=== PATIENT | female | born 1970 | race Caucasian/White ===

== ENCOUNTER 2022-06-30 09:30 | Observation (INO) ==
[2022-06-30] MEDS ORDERED: Iodixanol (CONTRAST) 320 MG/ML 100 ML SDV IV ONE (09:45)
[2022-06-30 10:10] LABS: ABS Basophils 0.1 10^3/ul (0-0.2); ABS Eosinophils 0.1 10^3/ul (0-0.6); ABS Lymphocytes 1.4 10^3/ul (1.0-4.8); ABS Monocytes 0.5 10^3/ul (0-0.8); ABS Neutrophils 6.1 10^3/ul (1.5-7.7); Eosinophil % 1.3 %; Hematocrit 37 % (35-47); Hemoglobin 11.8 g/dL (12.0-16.0); Mean Corpuscular HGB Conc 32 g/dL (31-36); Mean Corpuscular Hemoglobin 28 pg (27-31); Mean Corpuscular Volume 88 fL (80-97); Platelet Count 301 10^3/uL (150-450); Red Blood Count 4.18 10^6 /uL (3.70-4.87); Red Cell Distribution Width 14 % (10-15); White Blood Count 8.1 10^3/uL (3.5-10.8)
[2022-06-30 10:20] LABS: Activated Partial Thrombo Time 28.4 seconds (26.0-38.0); INR 0.97 (0.88-1.18)
[2022-06-30 11:37] LABS: Albumin 3.4 g/dL (3.2-5.2); Albumin/Globulin Ratio 1.3 (1-3); Calcium 8.6 mg/dL (8.6-10.3); Creatinine, Serum 0.89 mg/dL (0.51-0.95); Globulin 2.6 g/dL (2-4); HDL Cholesterol 50.7 mg/dL; Potassium 4.3 mmol/L (3.5-5.0); Total Bilirubin 0.2 mg/dL (0.2-1.0); eGFR CKD-EPI 77.5 (>60)
[2022-06-30] MEDS ORDERED: Iohexol 350 (CONTRAST) 500 ML MDV IV ONE (12:07)
[2022-06-30 13:18] LABS: Urine Appearance Cloudy; Urine Bilirubin Negative (Negative); Urine Blood Negative (Negative); Urine Color Yellow; Urine Glucose Negative (Negative); Urine Ketones Negative (Negative); Urine Nitrite Positive (Negative); Urine Protein Negative (Negative); Urine Specific Gravity 1.035 (1.002-1.030); Urine Urobilinogen Negative (Negative)
[2022-06-30 13:29] LABS: Urine Bacteria 1+ (Absent); Urine Red Blood Cell Absent (Absent); Urine Squamous Epithelial Cell Present (Absent); Urine White Blood Cell Trace(0-5/hpf) (Absent)
[2022-06-30] MEDS ORDERED: Nicotine GUM 4MG FRUIT FLAVOR PO PRN (15:57)
[2022-06-30] MEDS: Nicotine PATCH 21 MG/24 HR PATCH TRANSDERM SCH (16:05)
[2022-06-30] MEDS ORDERED: PEG 3000 GI LAVAGE 1 GALLON PO ONE (16:34)
[2022-06-30] MEDS ORDERED: levETIRAcetam 1000MG IVPREMIX 1,000 MG/100 ML BAG IVPB ONE (16:52)
[2022-06-30] MEDS ORDERED: Enoxaparin 40 MG/0.4 ML SYR SUBCUT SCH (17:00)
[2022-06-30] MEDS ORDERED: NS 0.9% w/ 20 Meq KCL 1000 ml 1,000 ML IV SCH (17:00)
[2022-07-01 06:31] LABS: ABS Basophils 0.1 10^3/ul (0-0.2); ABS Eosinophils 0.1 10^3/ul (0-0.6); ABS Lymphocytes 2.1 10^3/ul (1.0-4.8); ABS Monocytes 0.5 10^3/ul (0-0.8); ABS Neutrophils 3.3 10^3/ul (1.5-7.7); Eosinophil % 1.7 %; Hematocrit 37 % (35-47); Hemoglobin 11.8 g/dL (12.0-16.0); Lymphocyte % 34.1 %; Mean Corpuscular HGB Conc 32 g/dL (31-36); Mean Corpuscular Hemoglobin 28 pg (27-31); Mean Corpuscular Volume 88 fL (80-97); Mean Platelet Volume 7.4 fL (7.4-10.4); Platelet Count 317 10^3/uL (150-450); Red Blood Count 4.19 10^6 /uL (3.70-4.87); Red Cell Distribution Width 14 % (10-15); White Blood Count 6.1 10^3/uL (3.5-10.8)
[2022-07-01 06:56] LABS: Calcium 9.2 mg/dL (8.6-10.3); Creatinine, Serum 0.89 mg/dL (0.51-0.95); Magnesium 2.1 mg/dL (1.9-2.7); Potassium 4.5 mmol/L (3.5-5.0); eGFR CKD-EPI 77.5 (>60)
[2022-07-01] MEDS: Nicotine PATCH 21 MG/24 HR PATCH TRANSDERM SCH (09:40)
[2022-07-01] MEDS ORDERED: fentaNYL 100 mcg/2 ml 50 MCG/ML VIAL ONE (13:09)
[2022-07-01] MEDS ORDERED: Midazolam 10 mg/10 ml VIAL 1 mg/ml 10 ml VIAL (10 mg) ONE (13:09)
[2022-07-01 14:54] VITALS: BP 127/84
== END 2022-07-01 16:16 | disposition home or self-care (01) ==
LOC: EDHOLD 09:30 → ED 09:30 → MEDTELE 19:15
PROVIDERS: ADMIT Student in an Organized Health Care Education/Training Program; ATTEND Internal Medicine

== ENCOUNTER 2022-08-07 16:06 | Inpatient (IN) ==
[2022-08-07] MEDS ORDERED: Ondansetron 4 mg VIAL 2 MG/ML 2 ml VIAL IV ONE (16:42)
[2022-08-07 17:11] LABS: ABS Lymphocytes 0.3 10^3/ul (1.0-4.8); ABS Monocytes 0.1 10^3/ul (0-0.8); ABS Neutrophils 2.9 10^3/ul (1.5-7.7); Eosinophil % 0.5 %; Hematocrit 29 % (35-47); Hemoglobin 8.8 g/dL (12.0-16.0); Lymphocyte % 8.3 %; Mean Corpuscular HGB Conc 31 g/dL (31-36); Mean Corpuscular Hemoglobin 27 pg (27-31); Mean Corpuscular Volume 87 fL (80-97); Nucleated Red Blood Cells % 0.2; Platelet Count 287 10^3/uL (150-450); Red Blood Count 3.28 10^6 /uL (3.70-4.87); Red Cell Distribution Width 17 % (10-15); White Blood Count 3.3 10^3/uL (3.5-10.8)
[2022-08-07 17:35] LABS: INR 0.93 (0.88-1.18)
[2022-08-07 17:58] LABS: Albumin 3.2 g/dL (3.2-5.2); Albumin/Globulin Ratio 1.3 (1-3); C Reactive Protein 66.13 mg/L (<8.01); Calcium 8.6 mg/dL (8.6-10.3); Creatinine, Serum 0.79 mg/dL (0.51-0.95); Globulin 2.4 g/dL (2-4); Potassium 3.7 mmol/L (3.5-5.0); Total Bilirubin 0.2 mg/dL (0.2-1.0); Total Protein 5.6 g/dL (6.4-8.9); eGFR CKD-EPI 89.4 (>60)
[2022-08-07] MEDS ORDERED: Piperacillin/Tazobac ADVAN 3.375 GM in NS 0.9% 100 ml BAG 100 ML IV ONE (18:24)
[2022-08-07] MEDS ORDERED: NS 0.9% 1000 ml BAG 1,000 ML IV ONE (18:26)
[2022-08-07 18:45] LABS: High Sensitivity Troponin 1 Hr 76 pg/mL (<15)
[2022-08-07] MEDS: Enoxaparin 40 MG/0.4 ML SYR SUBCUT SCH (19:39)
[2022-08-07] MEDS ORDERED: Azithromycin 500 mg/250 ml NS 500 MG/250 ML BAG IVPB SCH (20:00)
[2022-08-08] MEDS ORDERED: Ondansetron 4 mg VIAL 2 MG/ML 2 ml VIAL ONE (00:11)
[2022-08-08] MEDS: Ondansetron 4 mg VIAL 2 MG/ML 2 ml VIAL IV PRN ×4 (00:15→22:11)
[2022-08-08] MEDS: Morphine 2 MG/ML SYRINGE IV PRN ×4 (00:15→22:10)
[2022-08-08] MEDS ORDERED: cefTRIAXone 1 gm/50 mL D5W 1 GM/50 ML BAG IV SCH (02:00)
[2022-08-08] MEDS ORDERED: Lactated Ringers 1000 ml BAG 500 ML IV ONE (04:08)
[2022-08-08 05:05] LABS: ABS Lymphocytes 0.7 10^3/ul (1.0-4.8); ABS Monocytes 0.4 10^3/ul (0-0.8); ABS Neutrophils 4.2 10^3/ul (1.5-7.7); Eosinophil % 0.4 %; Hematocrit 29 % (35-47); Lymphocyte % 12.9 %; Mean Corpuscular HGB Conc 31 g/dL (31-36); Mean Corpuscular Hemoglobin 27 pg (27-31); Mean Corpuscular Volume 86 fL (80-97); Mean Platelet Volume 7.1 fL (7.4-10.4); Nucleated Red Blood Cells % 0.1; Platelet Count 342 10^3/uL (150-450); Red Blood Count 3.37 10^6 /uL (3.70-4.87); Red Cell Distribution Width 17 % (10-15); White Blood Count 5.4 10^3/uL (3.5-10.8)
[2022-08-08 05:52] LABS: Calcium 8.1 mg/dL (8.6-10.3); Creatinine, Serum 1.13 mg/dL (0.51-0.95); Magnesium 1.6 mg/dL (1.9-2.7); Potassium 4.3 mmol/L (3.5-5.0); eGFR CKD-EPI 58.2 (>60)
[2022-08-08] MEDS ORDERED: Magnesium Sulf 4 GM/100 ML IV 4,000 MG/100 ML BAG IVPB ONE (06:32)
[2022-08-08] MEDS ORDERED: fentaNYL 100 mcg/2 ml 50 MCG/ML VIAL ONE (08:26)
[2022-08-08] MEDS: Lactated Ringers 1000 ml BAG 1,000 ML IV SCH ×2 (10:03→22:17)
[2022-08-08 10:06] LABS: Body Fluid Appearance Cloudy; Body Fluid Source Pleural Fluid
[2022-08-08 10:07] LABS: Body Fluid Color Amber
[2022-08-08 10:59] LABS: Body Fluid WBC 6590 /mcL
[2022-08-08] MEDS: guaiFENesin 100 mg/5 ml LIQ unit dose cup PO PRN (12:28)
[2022-08-08] MEDS ORDERED: Vancomycin 1,000 MG in NS 0.9% 250 ml 250 ML IVPB ONE (15:30)
[2022-08-08] MEDS ORDERED: Vancomycin per Pharmacy 1 EA NOTE FOLLOW UP SCH (16:00)
[2022-08-08] MEDS: Cefepime 2 GM in Dextrose 2 GM/50 ML BAG IV SCH (17:10)
[2022-08-08 19:16] LABS: Urine Appearance Cloudy; Urine Bilirubin Negative (Negative); Urine Blood 1+ (Negative); Urine Color Yellow; Urine Glucose Negative (Negative); Urine Ketones Negative (Negative); Urine Nitrite Negative (Negative); Urine Protein 2+(100 mg/dL) (Negative); Urine Urobilinogen Negative (Negative)
[2022-08-08 19:26] LABS: Urine Bacteria Absent (Absent); Urine Red Blood Cell Trace(0-2/hpf) (Absent); Urine Squamous Epithelial Cell Present (Absent); Urine White Blood Cell Trace(0-5/hpf) (Absent)
[2022-08-08] MEDS: Enoxaparin 40 MG/0.4 ML SYR SUBCUT SCH (20:13)
[2022-08-09] MEDS: Cefepime 2 GM in Dextrose 2 GM/50 ML BAG IV SCH ×2 (04:13→16:02)
[2022-08-09] MEDS: guaiFENesin 100 mg/5 ml LIQ unit dose cup PO PRN ×2 (04:40→10:56)
[2022-08-09] MEDS: Morphine 2 MG/ML SYRINGE IV PRN ×2 (04:40→11:28)
[2022-08-09] MEDS: Vancomycin 750 MG in NS 0.9% 250 ML IVPB SCH ×2 (05:31→18:17)
[2022-08-09 05:46] LABS: ABS Lymphocytes 0.5 10^3/ul (1.0-4.8); ABS Monocytes 0.6 10^3/ul (0-0.8); ABS Neutrophils 7.4 10^3/ul (1.5-7.7); Eosinophil % 0.1 %; Hematocrit 25 % (35-47); Hemoglobin 7.6 g/dL (12.0-16.0); Lymphocyte % 5.4 %; Mean Corpuscular HGB Conc 31 g/dL (31-36); Mean Corpuscular Hemoglobin 26 pg (27-31); Mean Corpuscular Volume 86 fL (80-97); Mean Platelet Volume 7.2 fL (7.4-10.4); Nucleated Red Blood Cells % 0.2; Platelet Count 322 10^3/uL (150-450); Red Blood Count 2.91 10^6 /uL (3.70-4.87); Red Cell Distribution Width 17 % (10-15); White Blood Count 8.5 10^3/uL (3.5-10.8)
[2022-08-09 06:16] LABS: Calcium 8.3 mg/dL (8.6-10.3); Creatinine, Serum 1.34 mg/dL (0.51-0.95); Magnesium 2.6 mg/dL (1.9-2.7); Potassium 4.1 mmol/L (3.5-5.0); eGFR CKD-EPI 47.4 (>60)
[2022-08-09] MEDS ORDERED: Acetaminophen IV 1 GM/100ML 1,000 MG/100 ML BAG IV ONE (13:08)
[2022-08-09] MEDS ORDERED: Ondansetron 4 mg VIAL 2 MG/ML 2 ml VIAL IV PRN (13:19)
[2022-08-09] MEDS ORDERED: Morphine 2 MG/ML SYRINGE IV PRN (13:19)
[2022-08-09] MEDS: Acetaminophen IV 1 GM/100ML 1,000 MG/100 ML BAG IV SCH ×2 (13:19→21:48)
[2022-08-09] MEDS ORDERED: Lactated Ringers 1000 ml BAG 1,000 ML IV SCH ×2 (15:00→18:00)
[2022-08-09] MEDS ORDERED: Iodixanol (CONTRAST) 320 MG/ML 100 ML SDV IV ONE (15:01)
[2022-08-09] MEDS ORDERED: Piperacillin/Tazobac ADVAN 3.375 GM in NS 0.9% 100 ml BAG 100 ML IV ONE (17:08)
[2022-08-09] MEDS: Chlorhexidine MOUTHWASH 0.12% 15 ML UDC SWISH SPIT SCH ×2 (17:39→21:45)
[2022-08-09] MEDS ORDERED: Zosyn per Pharmacy NOTE FOLLOW UP SCH (18:00)
[2022-08-09] MEDS: Enoxaparin 40 MG/0.4 ML SYR SUBCUT SCH (20:28)
[2022-08-09] MEDS: Pantoprazole VIAL 40 MG VIAL IV SCH (20:32)
[2022-08-09] MEDS: Lactated Ringers 1000 ml BAG 1,000 ML IV SCH (20:39)
[2022-08-09] MEDS ORDERED: Lorazepam PYXIS KEY PRN (21:19)
[2022-08-09] MEDS ORDERED: LORazepam 2 mg VIAL 1 ml IV PUSH ONE (21:19)
[2022-08-09] MEDS: levETIRAcetam 500 MG IVPREMIX 500 MG/100 ML BAG IV SCH (21:36)
[2022-08-09] MEDS ORDERED: Norepinephrine 16MCG/ML BAGD5W 4,000 MCG/250 ML BAG IV SCH (22:00)
[2022-08-09] MEDS: ZOSYN 3.375 GM Q8H per EXTENDED INFUSION IV SCH (22:31)
[2022-08-09] MEDS ORDERED: PHENYLEPHRINE DRIP IVPREMIX 50 MG/250 ML BAG IV SCH (23:45)
[2022-08-09] MEDS ORDERED: Hydrocortisone INJ 100 MG/2ML 2 ML VIAL IV ONE (23:51)
[2022-08-10] MEDS: Chlorhexidine MOUTHWASH 0.12% 15 ML UDC SWISH SPIT SCH ×5 (00:24→16:47)
[2022-08-10] MEDS: Phenylephrine DRIP 0.2 MG/ML in NS 0.9% 250 ML (PHA mix) IV SCH ×2 (00:43→12:42)
[2022-08-10] MEDS: Acetaminophen IV 1 GM/100ML 1,000 MG/100 ML BAG IV SCH ×2 (05:26→12:50)
[2022-08-10] MEDS ORDERED: Vancomycin Trough Check NOTE FOLLOW UP ONE (05:30)
[2022-08-10 05:34] LABS: ABS Lymphocytes 0.2 10^3/ul (1.0-4.8); ABS Monocytes 0.3 10^3/ul (0-0.8); ABS Neutrophils 8.9 10^3/ul (1.5-7.7); Eosinophil % 0.2 %; Hematocrit 22 % (35-47); Hemoglobin 6.9 g/dL (12.0-16.0); Lymphocyte % 2.4 %; Mean Corpuscular HGB Conc 31 g/dL (31-36); Mean Corpuscular Hemoglobin 26 pg (27-31); Mean Corpuscular Volume 84 fL (80-97); Mean Platelet Volume 7.6 fL (7.4-10.4); Nucleated Red Blood Cells % 0.2; Platelet Count 342 10^3/uL (150-450); Red Cell Distribution Width 17 % (10-15); White Blood Count 9.4 10^3/uL (3.5-10.8)
[2022-08-10 06:08] LABS: Calcium 7.7 mg/dL (8.6-10.3); Creatinine, Serum 1.21 mg/dL (0.51-0.95); Magnesium 2.3 mg/dL (1.9-2.7); Phosphorus 4.6 mg/dL (2.5-5.0); Potassium 3.9 mmol/L (3.5-5.0); eGFR CKD-EPI 53.6 (>60)
[2022-08-10] MEDS: Vancomycin 750 MG in NS 0.9% 250 ML IVPB SCH ×2 (06:20→17:09)
[2022-08-10] MEDS: ZOSYN 3.375 GM Q8H per EXTENDED INFUSION IV SCH ×2 (06:24→15:17)
[2022-08-10] MEDS: Pantoprazole VIAL 40 MG VIAL IV SCH (07:43)
[2022-08-10] MEDS: Hydrocortisone INJ 100 MG/2ML 2 ML VIAL IV SCH ×2 (07:43→16:47)
[2022-08-10] MEDS: levETIRAcetam 500 MG IVPREMIX 500 MG/100 ML BAG IV SCH (07:43)
[2022-08-10] MEDS: Lactated Ringers 1000 ml BAG 1,000 ML IV SCH (09:16)
[2022-08-10] MEDS ORDERED: ANIDULAFUNGIN IVPB SCH (10:00)
[2022-08-10] MEDS ORDERED: NS 0.9% IVPB SCH (10:00)
[2022-08-10] MEDS ORDERED: Anidulafungin 200 MG in NS 0.9% 200 ML IVPB ONE (10:30)
[2022-08-10 12:28] LABS: Albumin 1.8 g/dL (3.2-5.2); Albumin/Globulin Ratio 1.1 (1-3); Calcium 6.7 mg/dL (8.6-10.3); Creatinine, Serum 1.02 mg/dL (0.51-0.95); Globulin 1.7 g/dL (2-4); Magnesium 1.9 mg/dL (1.9-2.7); Potassium 3.6 mmol/L (3.5-5.0); Total Bilirubin 0.2 mg/dL (0.2-1.0); Total Protein 3.5 g/dL (6.4-8.9); eGFR CKD-EPI 65.8 (>60)
[2022-08-10 13:37] LABS: Albumin, BF 0.8 g/dL; Fluid Type, Albumin PLEURAL; Fluid Type, Protein, Total PLEURAL; Glucose, BF 305 mg/dL; Total Protein, BF 2.1 g/dL
[2022-08-10 15:34] LABS: Hematocrit 23 % (35-47); Hemoglobin 7.2 g/dL (12.0-16.0)
[2022-08-10 15:55] LABS: Lactate Dehydrogenase, BF 2572 U/L
[2022-08-10] MEDS ORDERED: TPN 24 HR with Dextrose 50% Water 500 ML, Amino Acid Infusion 10% 850 ML, Sterile Water... CENT\\PICC SCH (17:00)
[2022-08-10 18:10] VITALS: BP 98/66
[2022-08-11] MEDS ORDERED: Anidulafungin 100 MG in NS 0.9% 100 ML IVPB SCH (09:00)
== END 2022-08-10 20:00 | disposition short-term general hospital (02) | DRG 242 ==
LOC: ED 16:06 → EDHOLD 16:06 → SUATTDRO 18:46 → MED 22:01 → ICU 08-09 12:56
PROVIDERS: ADMIT Internal Medicine; ATTEND Hospitalist